=== PATIENT | female | born 1985 | race Caucasian/White ===

== ENCOUNTER → 2019-11-17 | Day surgery (SDC) | payer OTHER ==
[~2019-11-17] MED LIST: Dexamethasone 4 MG/ML 5 ML MDV ONE; Ketorolac 30 MG/ML SDV ONE; Lactated Ringers 1,000 ML IV SCH; Lidocaine 2% 5 ML SDV ONE; Midazolam 1 MG/ML 2 ML SDV ONE; Ondansetron 4 MG/2 ML SDV ONE; Propofol 200 MG/20 ML SDV ONE; Rocuronium Bromide 50 MG/5 ML Syringe ONE; Scopolamine 1.5 MG Transdermal Patch TRDERM PRN; fentaNYL 100 MCG/2 ML SDV ONE; fentaNYL 250 MCG/5 ML SDV ONE
--- NOTE | 2019-11-17 07:10 | PCM.PREANE ---
Preanesthetic Assessment - Anesthesia/Transfusion/Family Hx Anesthesia History: Prior Anesthesia Without Reaction Type of Anesthesia Reaction: Excessive Nausea/Vomiting Family History of Anesthesia Reaction: No Transfusion History: Prior Transfusion Without Reaction Intubation History: Unknown - Review of Systems General: No Symptoms Pulmonary: No Symptoms Cardiovascular: No Symptoms Gastrointestinal: No Symptoms Neurological: No Symptoms Other: Reports: None - Physical Assessment Height: 5 ft 7 in Weight: 74.389 kg ASA Class: 2 Mental Status: Alert & Oriented x3 Airway Class: Mallampati = 1 Dentition: Reports: Normal Dentition (braces upper and lower) Thyro-Mental Finger Breadths: 3 Mouth Opening Finger Breadths: 3 ROM/Head Extension: Full Lungs: Clear to Auscultation, Normal Respiratory Effort Cardiovascular: Regular Rate, Regular Rhythm - Allergies Allergies/Adverse Reactions: Allergies Allergy/AdvReac Type Severity Reaction Status Date / Time No Known Allergies Allergy Verified 11/16/19 09:31 - Blood Blood Available: No - Anesthesia Plan Pre-Op Medication Ordered: None - Acknowledgements Anesthesia Type Planned: General Anesthesia Pt an Appropriate Candidate for the Planned Anesthesia: Yes Alternatives and Risks of Anesthesia Discussed w Pt/Guardian: Yes Pt/Guardian Understands and Agrees with Anesthesia Plan: Yes PreAnesthesia Questionnaire HEENT History: Reports: Other (See Below) Other HEENT History: upper and lower dental braces ADMINISTRATIVE FELLOW History: Reports: Endocrine/Metabolic History: Reports: Hypothyroidism Hematologic History: Reports: B12 Deficiency, Blood Transfusion(s), Other (See Below) Other Hematologic History: hx of Thrombocytopenia, placed on tranxamic acid- doing better since - Past Surgical History Head Surgeries/Procedures: Reports: None HEENT Surgical History: Reports: LASIK GI Surgical History: Reports: Appendectomy Female Surgical History: Reports: Breast Implant, Section (x3), Cervical Cryotherapy, Cystectomy (x2 right side), Salpingo-Oophorectomy Other Female Surgeries/Procedures: x2, laparotomy for right S&O, elective TOP '03, repair of right ovarian artery bleeding Dermatological Surgical History: Reports: Other (See Below) (breast augmentation) - SUBSTANCE USE Smoking Status *Q: Never Smoker Recreational Drug Use History: No - HOME MEDS Home Medications: Home Meds Cyanocobalamin (Vitamin B12) [Vitamin B12] 1,000 mcg PO DAILY 07/13/20 [History] Levothyroxine 75 mcg PO DAILY 11/16/19 [History] Tranexamic Acid [Lysteda] 1,300 mg PO TID PRN 11/16/19 [History] - CURRENT (IN HOUSE) MEDS Current Meds: Current Medications Lactated Ringer's (Ringers, Lactated) 1,000 mls @ 100 mls/hr IV ASDIRECTED VERONA Scopolamine (Transderm-Scop) 1.5 mg TRDERM Q72H PRN PRN Reason: Nausea Discontinued Medications Dexamethasone (Dexamethasone) Confirm Administered Dose 20 mg .ROUTE .STK-MED ONE Stop: 11/17/19 06:56 Fentanyl (Sublimaze) Confirm Administered Dose 250 mcg .ROUTE .STK-MED ONE Stop: 11/17/19 06:55 Lidocaine (Xylocaine-Mpf 2%) Confirm Administered Dose 5 ml .ROUTE .STK-MED ONE Stop: 11/17/19 06:56 Midazolam HCl (Versed 1 Mg/Ml) Confirm Administered Dose 2 mg .ROUTE .STK-MED ONE Stop: 11/17/19 06:55 Ondansetron HCl (Zofran) Confirm Administered Dose 4 mg .ROUTE .STK-MED ONE Stop: 11/17/19 06:56 Propofol (Diprivan 20 Ml) Confirm Administered Dose 200 mg .ROUTE .STK-MED ONE Stop: 11/17/19 06:55 Rocuronium [place] (Rocuronium [place]) Confirm Administered Dose 50 mg .ROUTE .STK-MED ONE Stop: 11/17/19 06:56
--- NOTE | 2019-11-17 08:25 | PCM.OPNOTE ---
- General Post-Op/Procedure Note Date of Surgery/Procedure: 11/17/19 Operative Procedure(s): Hysteroscopy, D&C, Lizzette endometrial ablation Pre Op Diagnosis: Abnormal Uterine Bleeding Post-Op Diagnosis: Abnormal Uterine bleeding Anesthesia Technique: General LMA Primary Surgeon: Gloria Hu Software Engineer Intern: Cheko Calix Fluid Replacement, Intraop: 1,000 EBL in mLs: 10 Drain/Tube Comments:: 75mL fluid deficit Complications: None Condition: Good Free Text/Narrative:: Once general anesthesia had been achieved, patient was placed in dorsal lithotomy position. Vagina was prepped with betadine solution. Bimanual exam was performed, revealing a retroverted uterus. Vaginal speculum was inserted into the vagina and the cervix was visualized. Beatriz clamp was placed on the posterior cervix. Uterus was sounded to 11cm and the cervix was sounded to 5.5 cm. The cervix was then progressively dilated. Hysteroscope was inserted and both tubal ostia and uterine fundus were visualized. Dilation and currettage was performed and endometrial curettings were collected for pathology. Lizzette ablation device was inserted and test was performed to ensure integrity. Ablation was performed with no complications and device was removed. Estimated blood loss was noted to be 10mL and fluid deficit was noted to be 75mL.
--- NOTE | 2019-11-17 08:52 | PCM.POSTAN ---
POST ANESTHESIA ASSESSMENT - MENTAL STATUS Mental Status: Alert, Oriented - VITAL SIGNS Vital Signs: Last Vital Signs Temp 35.9 C L 11/17/19 08:25 Pulse 92 11/17/19 08:45 Resp 15 11/17/19 08:45 BP 112/62 11/17/19 08:45 Pulse Ox 100 11/17/19 08:45 - RESPIRATORY Respiratory Status: Respiratory Rate WNL, Airway Patent, O2 Saturation Stable - CARDIOVASCULAR CV Status: Pulse Rate WNL, Blood Pressure Stable - GASTROINTESTINAL GI Status: No Symptoms - PAIN Pain Score: 0 - POST OP HYDRATION Hydration Status: Adequate & Stable - OBSERVATIONS Free Text/Narrative:: No anesthesia problems
--- NOTE | 2019-11-17 09:35 | PCM48HPAN ---
Post Anesthesia Note - EVALUATION WITHIN 48HRS OF ANESTHETIC Vital Signs in Normal Range: Yes Patient Participated in Evaluation: Yes Respiratory Function Stable: Yes Airway Patent: Yes Cardiovascular Function Stable: Yes Hydration Status Stable: Yes Pain Control Satisfactory: Yes Nausea and Vomiting Control Satisfactory: Yes Mental Status Recovered: Yes Vital Signs: Last Vital Signs Temp 35.9 C L 11/17/19 08:52 Pulse 56 L 11/17/19 09:33 Resp 16 11/17/19 09:33 BP 126/72 11/17/19 09:33 Pulse Ox 100 11/17/19 09:33 - COMMENTS/OBSERVATIONS Free Text/Narrative:: No anesthesia problems
--- NOTE | 2019-11-17 11:28 | OR ---
SURGEON: Gloria Hu M.D. DATE OF PROCEDURE: 11/17/2019 PREOPERATIVE DIAGNOSIS: Menorrhagia. POSTOPERATIVE DIAGNOSIS: Menorrhagia. PROCEDURE: Diagnostic hysteroscopy, uterine curettage, and Lizzette endometrial ablation. PRIMARY SURGEON: Gloria Hu M.D. REAL ESTATE LEGAL SECRETARY: BESSY Aleman ANESTHESIA: General LMA. ESTIMATED BLOOD LOSS: 10 mL. FLUIDS: 1000 mL crystalloid. HYSTEROSCOPIC DEFICIT: 75 mL of normal saline. FINDINGS: Uterus retroverted, 12-week size, sounds to 11 cm. The cervical length is 5.5 cm. Uterine length is 5.5 cm. Bilateral tubal ostia were identified on hysteroscopy. There were no masses, lesions, polyps, or fibroids. COMPLICATIONS: None known. DISPOSITION: Stable to Recovery. BRIEF HISTORY: This is a 34-year-old female. She has a long history of menorrhagia. She has had prior bilateral salpingectomy for contraception and she desires to proceed with a thermal endometrial ablation. She has had a prior saline ultrasound in the clinic that was normal. Additionally, she had an endometrial biopsy in the clinic that was benign. She presents for diagnostic hysteroscopy, uterine curettage, and Lizzette endometrial ablation with risks discussed including bleeding, infection, uterine perforation with injury to surrounding organs, risk of causing endometrial scarring with potential for hematometra and risk of masking future endometrial cancer. Understanding all these risks, she does desire to proceed. DESCRIPTION OF PROCEDURE: With the patient in dorsal lithotomy position, under adequate general LMA analgesia, the perineum and vagina were prepped with Betadine and draped in usual fashion for vaginal surgery. SCDs were in place. Bladder had been drained with a red Saldana catheter and the perineum was appropriately draped. Appropriate time-out was held. Bimanual examination revealed a retroverted 12- week size uterus. Speculum was placed in the vagina. The posterior lip of the cervix was grasped with an Allis clamp. The uterus was sounded to 11 cm. The cervix was sounded to 5.5 cm. The cervix was dilated to a 6 mm Hegar dilator. The hysteroscope was placed into the uterine cavity and bilateral tubal ostia were identified. There were no lesions to be removed. There was no polyp, no fibroid, no other mass lesion or abnormality. Therefore, the hysteroscopy was completed and sharp curettage of the endometrium was performed at the 12, 3, 6, and 9 o'clock positions. The Lizzette ablation handpiece was then set for a depth of uterine cavity to 5.5 cm, and with traction on the cervix, the hand piece was retracted, placed to the fundus, released. The arms were opened and the balloon was insufflated. Pretests were performed to confirm integrity of the uterus and were passed. The 120-second treatment cycle was performed. The balloon was desufflated. The arms were retracted. The Lizzette device was removed. All the instruments were removed from the vagina. Final sponge, needle, and instrument counts were reported as correct. There were no known complications. The patient was transferred to Recovery in good condition. DELMER TRIMBLE /[id number]
== END | disposition home or self-care (01) ==
LOC: MW.SDS 10:43
PROVIDERS: ATTEND Obstetrics & Gynecology
DX: N85.8 Other specified noninflammatory disorders of uterus (principal); N92.0 Excessive and frequent menstruation with regular cycle; E03.9 Hypothyroidism, unspecified; D51.0 Vitamin B12 deficiency anemia due to intrinsic factor deficiency; Z90.79 Acquired absence of other genital organ(s); Z79.890 Hormone replacement therapy; Z79.899 Other long term (current) drug therapy; Z90.722 Acquired absence of ovaries, bilateral
CPT/HCPCS: 58563; 88305; A9270; J1100; J1885; J2001; J2250; J2405; J2704; J3010; J7120; 00952